=== PATIENT | male | born 1970 | race Caucasian/White ===

== ENCOUNTER 2020-09-19 18:07 | Emergency (ER) | payer OTHER ==
[2020-09-19 18:49] LABS: #Basophils 0.1 thou/uL (0.0-0.2); #Lymphocytes 1.7 thou/uL (1.20-3.40); #Monocytes 0.7 thou/uL (0.11-0.59); #Neutrophils 4.8 thou/uL (1.40-6.50); %Basophils 0.7 % (0.0-1.0); %Eosinophils 0.6 % (0.0-10.0); %Lymphocytes 23.6 % (21.0-51.0); %Monocytes 9.5 % (0.0-10.0); %Neutrophils 65.5 % (42.0-75.0); Hemoglobin 15.3 g/dL (14.0-18.0); Mean Corpuscular HGB CONC 33.5 g/dL (32.0-36.0); Mean Corpuscular Hemoglobin 30.2 pg (27.0-31.0); Mean Corpuscular Volume 90.1 fL (78.0-98.0); Mean Platelet Volume 7.8 fL (7.4-10.4); Platelet Count 289 thou/uL (130-400); Red Blood Cell (RBC) Count 5.07 mill/uL (4.70-6.10); White Blood Cell (WBC) Count 7.3 thou/uL (4.8-10.8)
--- NOTE | 2020-09-19 19:04 | RAD ---
RADIOGRAPH CHEST 1 VIEW: Date: 09/19/20 Time: 6:35 p.m. HISTORY: 50-year-old male with cough, dyspnea, and fever. COMPARISON: None. FINDINGS: There are subtle, mild patchy reticulonodular pulmonary densities in the right upper, mid, and lower lung zones. There are more confluent such infiltrates at the lateral aspect of the left mid and lower lung zones, with small area of consolidation. No cardiomegaly or pneumothorax. IMPRESSION: Bilateral infiltrates: Evidence for mild to moderate COVID-19 pneumonia. JN [] POS: JIN
[2020-09-19 19:11] LABS: ALT (SGPT) 29 U/L (8-55); AST (SGOT) 30 U/L (5-34); Albumin 4.1 g/dL (3.5-5.0); Alkaline Phosphatase 96 U/L (40-110); Anion Gap 22 mmol/L (10-20); BUN (Urea Nitrogen) 11 mg/dL (8.4-25.7); Bilirubin, Total 0.6 mg/dL (0.2-1.2); Calc. Creatinine Clearance 0 mL/min (70-130); Calcium 9.3 mg/dL (7.8-10.44); Carbon Dioxide 24 mmol/L (22-29); Chloride 97 mmol/L (98-107); Globulin 3.9 g/dL (2.4-3.5); Glucose 135 mg/dL (70-105); Potassium 3.6 mmol/L (3.5-5.1); Sodium 139 mmol/L (136-145)
[2020-09-19] MEDS ORDERED: Hydrocodone-Acetamin 15 ML UDCUP ONE (19:27)
[2020-09-19] MEDS ORDERED: Ketorolac Tromethamine 30 MG/ML VIAL ONE (19:27)
[2020-09-19] MEDS ORDERED: HYDROcodone/Acetaminophen 7.5/325 mg Tablet ONE (19:27)
== END 2020-09-19 20:47 | disposition home or self-care (01) ==
LOC: ERS 18:07
DX: U07.1 COVID-19 (principal); F17.220 Nicotine dependence, chewing tobacco, uncomplicated
CPT/HCPCS: 71045; 80053; 83880; 84484; 85025; 93005; 94760; 96374; J1885

== ENCOUNTER 2021-04-11 11:12 | Inpatient (IN) | payer OTHER ==
[2021-04-11 12:28] LABS: #Eosinphils 0.1 thou/uL (0.0-0.7); #Monocytes 0.5 thou/uL (0.11-0.59); #Neutrophils 6.7 thou/uL (1.40-6.50); %Basophils 0.3 % (0.0-1.0); %Eosinophils 0.6 % (0.0-10.0); %Monocytes 5.1 % (0.0-10.0); %Neutrophils 65.1 % (42.0-75.0); Mean Corpuscular HGB CONC 33.1 g/dL (32.0-36.0); Mean Corpuscular Hemoglobin 30.9 pg (27.0-31.0); Mean Corpuscular Volume 93.5 fL (78.0-98.0); Platelet Count 240 thou/uL (130-400); RBC Distribution Width 12.4 % (11.5-14.5); Red Blood Cell (RBC) Count 3.57 mill/uL (4.70-6.10); White Blood Cell (WBC) Count 10.2 thou/uL (4.8-10.8)
[2021-04-11 12:39] LABS: Prothrombin Time 13.5 sec (12.0-14.7)
[2021-04-11 12:40] LABS: PTT 28.7 sec (22.9-36.1)
[2021-04-11 12:48] LABS: ALT (SGPT) 18 U/L (8-55); AST (SGOT) 15 U/L (5-34); Alkaline Phosphatase 58 U/L (40-110); Anion Gap 14 mmol/L (10-20); BUN (Urea Nitrogen) 23 mg/dL (8.4-25.7); Bilirubin, Total 0.5 mg/dL (0.2-1.2); Calc. Creatinine Clearance 0 mL/min (70-130); Calcium 8.8 mg/dL (7.8-10.44); Carbon Dioxide 26 mmol/L (22-29); Chloride 101 mmol/L (98-107); Globulin 2.3 g/dL (2.4-3.5); Glucose 148 mg/dL (70-105); Potassium 4.2 mmol/L (3.5-5.1); Protein, Total 6.3 g/dL (6.0-8.3); Sodium 137 mmol/L (136-145)
[2021-04-11 13:40] LABS: SARS-CoV-2 NAA Rapid Test Not Detected (NotDetected)
[2021-04-11] MEDS ORDERED: PROPOFOL 200 MG/20 ML VIAL ONE (14:05)
[2021-04-11] MEDS ORDERED: GoLYTELY 4,000 ml Bottle PO SCH (14:30)
[2021-04-11] MEDS ORDERED: Acetaminophen 650 MG Suppository PR PRN (16:11)
[2021-04-11] MEDS ORDERED: Ondansetron ODT 4 MG TAB PO PRN (16:11)
[2021-04-11] MEDS ORDERED: Acetaminophen 325 MG TAB PO PRN (16:11)
[2021-04-11] MEDS ORDERED: Ondansetron PF 4 MG/2 ML Vial IVP PRN (16:11)
[2021-04-11 16:51] LABS: Hemoglobin 9.9 g/dL (14.0-18.0)
[2021-04-11] MEDS ORDERED: Sodium Chloride 0.9% (PF) 10 ML VIAL FS PRN (17:45)
[2021-04-11] MEDS: Pantoprazole 40 MG VIAL IVP SCH (20:06)
[2021-04-11] MEDS: Sodium Chloride 0.9% 1,000 ML IV SCH (20:06)
[2021-04-11] MEDS ORDERED: Pantoprazole 40 MG VIAL IVP SCH (21:00)
[2021-04-12] MEDS: Sodium Chloride 0.9% 1,000 ML IV SCH (02:05)
[2021-04-12 05:28] LABS: Hemoglobin 9.3 g/dL (14.0-18.0)
[2021-04-12 05:45] LABS: Anion Gap 9 mmol/L (10-20); BUN (Urea Nitrogen) 12 mg/dL (8.4-25.7); Calc. Creatinine Clearance 144 mL/min (70-130); Calcium 8.1 mg/dL (7.8-10.44); Carbon Dioxide 28 mmol/L (22-29); Chloride 105 mmol/L (98-107); Glucose 137 mg/dL (70-105); Potassium 3.7 mmol/L (3.5-5.1); Sodium 138 mmol/L (136-145)
[2021-04-12] MEDS: Pantoprazole 40 MG VIAL IVP SCH (08:38)
[2021-04-12] MEDS ORDERED: PROPOFOL 200 MG/20 ML VIAL ONE (10:27)
[2021-04-12] MEDS ORDERED: Lidocaine 1% PF 5 ML VIAL ONE (10:27)
[2021-04-12] MEDS ORDERED: Sodium Chloride 0.9% 20 ML ONE (10:44)
[2021-04-12] MEDS ORDERED: Ondansetron HCl/PF 4 MG/2 ML Vial IVP PRN (11:13)
[2021-04-12] MEDS ORDERED: Promethazine HCl 25 MG/ML VIAL IVPB PRN (11:13)
[2021-04-12] MEDS ORDERED: Promethazine HCl 25 MG/ML VIAL IM PRN (11:13)
[2021-04-12 12:12] LABS: Hemoglobin 10.9 g/dL (14.0-18.0)
[2021-04-12 13:24] VITALS: BP 119/76; TEMP 98.1
== END 2021-04-12 14:07 | disposition home or self-care (01) | DRG 920 ==
LOC: ERS 11:12 → ERHOLD 14:47 → SJJU 16:20
PROVIDERS: ADMIT Internal Medicine Gastroenterology; ATTEND Internal Medicine Gastroenterology
PROC: 0DJD8ZZ Inspection of Lower Intestinal Tract, Via Natural or Artificial Opening Endoscopic (ICD-10-PCS; 2021-04-11)
PROC: 0W3P8ZZ Control Bleeding in Gastrointestinal Tract, Via Natural or Artificial Opening Endoscopic (ICD-10-PCS; principal; 2021-04-12)
PROC: 0DBK8ZZ Excision of Ascending Colon, Via Natural or Artificial Opening Endoscopic (ICD-10-PCS; 2021-04-12)
DX: K91.840 Postprocedural hemorrhage of a digestive system organ or structure following a digestive system procedure (principal); K63.3 Ulcer of intestine; Z20.822 Contact with and (suspected) exposure to COVID-19; F17.220 Nicotine dependence, chewing tobacco, uncomplicated; E11.9 Type 2 diabetes mellitus without complications; Y83.8 Other surgical procedures as the cause of abnormal reaction of the patient, or of later complication, without mention of misadventure at the time of the procedure; Z86.010 Personal history of colon polyps; Z90.49 Acquired absence of other specified parts of digestive tract; Z79.84 Long term (current) use of oral hypoglycemic drugs
CPT/HCPCS: 36415; 80048; 80053; 85014; 85018; 85025; 85610; 85730; 86850; 86900; 86901; 88305; 99285; C9113; J2704; U0002; U0005